=== PATIENT | female | born 1975 | race Caucasian/White ===

== ENCOUNTER 2019-06-29 05:55 | Emergency (ER) | payer OTHER ==
[~2019-06-29 05:55] MED LIST: BP MED; BUSP30TA2 PO; CARI350T PO; FERR1TAB45 PO; LEVO200 PO; MORP30TA71 PO; OXYC-43 PO; PARO40TA PO; TEMA30CA PO
== END 2019-06-29 06:30 | disposition left against medical advice (07) ==
LOC: EMS 05:56
DX: K46.9 Unspecified abdominal hernia without obstruction or gangrene (principal); Z53.21 Procedure and treatment not carried out due to patient leaving prior to being seen by health care provider

== ENCOUNTER 2019-11-29 16:41 | Inpatient (IN) | payer OTHER ==
[~2019-11-29] VITALS: Ht 174 cm; Wt 96.7 kg
[2019-11-29] VITALS (7 sets, daily range): BP systolic 13–130; BP diastolic 59–75
[~2019-11-29 16:41] MED LIST changes: -BP MED; -BUSP30TA2 PO; -CARI350T PO; +DOCU-275 PO; +FERR-89 PO; -MORP30TA71 PO; -OXYC-43 PO; -PARO40TA PO
[2019-11-29] MEDS ORDERED: METF-960 PO (16:53)
[2019-11-29] MEDS ORDERED: OMEP20 PO (16:53)
[2019-11-29] MEDS ORDERED: CHOL400T56 PO (16:53)
[2019-11-29 17:02] LABS: GLUCOSE,POINT OF CARE 135 MG/DL (70-110)
[2019-11-29 17:39] LABS: BASOPHILS % (AUTO) 0.7 % (0.0-2.0); HEMATOCRIT 21.5 % (36-46); LYMPHOCYTES # (AUTO) 1.4 K/uL (1.0-4.8); LYMPHOCYTES % (AUTO) 14.5 % (22.0-44.0); MEAN CORPUSCULAR HEMOGLOBIN 24.4 pg (26.0-34.0); MEAN CORPUSCULAR HGB CONC 31.7 G/dL (31.0-37.0); MEAN CORPUSCULAR VOLUME 77 fL (80-100); MONOCYTES # (AUTO) 0.5 K/uL (0.1-1.0); MONOCYTES % (AUTO) 5.4 % (2.0-9.0); NEUTROPHILS # (AUTO) 7.4 K/uL (1.8-7.7); NEUTROPHILS % (AUTO) 77.4 % (40.0-70.0); PLATELET COUNT (AUTO) 174 K/uL (150-450); RED BLOOD CELL COUNT(AUTO) 2.79 MIL/uL (4.00-5.20); RED CELL DISTRIBUTION WIDTH 24.1 % (11.5-14.5)
[2019-11-29 17:41] LABS: ANION GAP 4 mmol/L (8-16); CALCIUM, TOTAL 8.7 mg/dL (8.8-10.5); CARBON DIOXIDE 32 mmol/L (22-29); CHLORIDE 101 mmol/L (98-107); CREATININE 1.33 mg/dL (0.60-1.30); GLOMERULAR FILTR. RATE CALC 43 mL/min (>60); GLUCOSE,RANDOM 124 mg/dL (70-110); HEMOGLOBIN 6.8 g/dL (12.0-16.0); POTASSIUM 3.2 mmol/L (3.5-5.1); SODIUM SERUM 137 mmol/L (136-145); UREA NITROGEN, BLOOD 17 mg/dL (7-18)
[2019-11-29 17:53] LABS: ALANINE AMINOTRANSFERASE 23 U/L (12-78); ALBUMIN 3.9 g/dL (3.4-5.0); ALKALINE PHOSPHATASE 34 U/L (46-116); ASPARTATE AMINOTRANSFERASE 35 U/L (15-37); BILIRUBIN,TOTAL 0.2 mg/dL (0.1-1.0); HCG,QUANTITATIVE < 1 mIU/mL (0-6); TOTAL PROTEIN, SERUM 6.9 g/dL (6.4-8.2)
[2019-11-29 18:11] LABS: PLATELET MORPHOLOGY COMMENT LARGE PLTS PRESENT
[2019-11-29] MEDS ORDERED: ACETAMINOPHEN 500 MG TABLET PO ONE (18:30)
[2019-11-29] MEDS ORDERED: ACETAMINOPHEN 325 MG TABLET PO PRN (18:30)
[2019-11-29] MEDS ORDERED: DiphenhydrAMINE HCL 25 MG CAPSULE PO ONE (18:30)
[2019-11-29] MEDS ORDERED: 0.9% SODIUM CHLORIDE 10 ML SYRINGE IVP PRN (18:30)
[2019-11-29] MEDS ORDERED: ONDANSETRON HCL 4 MG/2 ML VIAL IVP PRN ×2 (18:30→23:15)
[2019-11-29] MEDS ORDERED: CHOL125C2 PO (18:31)
[2019-11-29] MEDS ORDERED: LEVO125 PO (18:31)
[2019-11-29] MEDS ORDERED: PREN1TAB26 PO (18:31)
[2019-11-29 19:17] LABS: % IRON SATURATION 4.2 % (22-44)
[2019-11-29] MEDS ORDERED: CLON2 PO (21:14)
[2019-11-29] MEDS ORDERED: ClonazePAM 1 MG TABLET PO PRN (21:45)
[2019-11-29] MEDS ORDERED: MAGNESIUM HYDROXIDE SUSPENSION 30 ML UDCUP PO PRN (23:15)
[2019-11-29] MEDS ORDERED: BISACODYL 10 MG RECTAL RECTAL SUPPOSITORY PR PRN (23:15)
[2019-11-29] MEDS ORDERED: ZOLPIDEM TARTRATE 5 MG TABLET PO PRN (23:15)
[2019-11-30] VITALS (13 sets, daily range): BP systolic 106–150; BP diastolic 53–87
[2019-11-30 06:43] LABS: ALBUMIN 3.5 g/dL (3.4-5.0); BILIRUBIN,TOTAL 0.3 mg/dL (0.1-1.0); CALCIUM, TOTAL 8.1 mg/dL (8.8-10.5); CREATININE 1.05 mg/dL (0.60-1.30); POTASSIUM 3.3 mmol/L (3.5-5.1); TOTAL PROTEIN, SERUM 6.5 g/dL (6.4-8.2)
[2019-11-30] MEDS ORDERED: DEXTROSE 50%-WATER 25 GM/50 ML SYRINGE IVP PRN (07:15)
[2019-11-30 07:17] LABS: BASOPHILS % (AUTO) 1.1 % (0.0-2.0); EOSINOPHILS % (AUTO) 3.2 % (1.0-6.0); HEMATOCRIT 25.5 % (36-46); HEMOGLOBIN 8.3 g/dL (12.0-16.0); LYMPHOCYTES # (AUTO) 1.8 K/uL (1.0-4.8); LYMPHOCYTES % (AUTO) 29.8 % (22.0-44.0); MEAN CORPUSCULAR HGB CONC 32.5 G/dL (31.0-37.0); MEAN CORPUSCULAR VOLUME 80 fL (80-100); MONOCYTES # (AUTO) 0.4 K/uL (0.1-1.0); NEUTROPHILS # (AUTO) 3.5 K/uL (1.8-7.7); NEUTROPHILS % (AUTO) 59.9 % (40.0-70.0); PLATELET COUNT (AUTO) 146 K/uL (150-450); RED CELL DISTRIBUTION WIDTH 23.5 % (11.5-14.5)
[2019-11-30] MEDS: INSULIN LISPRO 100 UNITS/ML SQ PRN (07:19)
[2019-11-30] MEDS ORDERED: FERROUS SULFATE 325 MG EC TABLET PO SCH (08:00)
[2019-11-30] MEDS: ClonazePAM 1 MG TABLET PO PRN ×2 (08:28→20:06)
[2019-11-30] MEDS: CHOLECALCIFEROL (VIT D3) 5,000 [125 MCG] UNITS CAPSULE PO SCH (08:28)
[2019-11-30] MEDS: MULTIVITAMINS WITH IRON TABLET PO SCH (08:28)
[2019-11-30] MEDS ORDERED: OMEPRAZOLE 20 MG CAPSULE PO SCH (09:00)
[2019-11-30] MEDS ORDERED: CHOLECALCIFEROL (VIT D3) 5,000 [125 MCG] UNITS CAPSULE PO SCH (09:00)
[2019-11-30] MEDS: NICOTINE 21 MG/24 HOUR PATCH TD SCH (11:12)
[2019-11-30] MEDS ORDERED: SODIUM CHLORIDE 0.9% 500 ML IV ONE (11:18)
[2019-11-30 11:22] LABS: GLUCOMETER DEV NAME(LOC) 6N.2; GLUCOSE,POINT OF CARE 154 MG/DL (70-110)
[2019-11-30 12:19] LABS: GLUCOMETER DEV NAME(LOC) 6S.1; GLUCOSE,POINT OF CARE 97 MG/DL (70-110)
[2019-11-30 12:59] LABS: % IRON SATURATION 5.7 % (22-44)
[2019-11-30 16:25] LABS: HEMATOCRIT 26.3 % (36-46); HEMOGLOBIN 8.8 g/dL (12.0-16.0)
[2019-11-30] MEDS: FERROUS SULFATE 325 MG EC TABLET PO SCH (17:12)
[2019-11-30 17:45] LABS: GLUCOMETER DEV NAME(LOC) 6S.1; GLUCOSE,POINT OF CARE 117 MG/DL (70-110)
[2019-12-01 00:33] VITALS: BP 110/68
[2019-12-01 04:43] VITALS: BP 121/85
[2019-12-01 05:31] LABS: EOSINOPHILS % (AUTO) 3.5 % (1.0-6.0); HEMATOCRIT 26.4 % (36-46); HEMOGLOBIN 8.9 g/dL (12.0-16.0); LYMPHOCYTES # (AUTO) 1.5 K/uL (1.0-4.8); LYMPHOCYTES % (AUTO) 26.5 % (22.0-44.0); MEAN CORPUSCULAR HEMOGLOBIN 27.5 pg (26.0-34.0); MEAN CORPUSCULAR HGB CONC 33.9 G/dL (31.0-37.0); MEAN CORPUSCULAR VOLUME 81 fL (80-100); MONOCYTES # (AUTO) 0.3 K/uL (0.1-1.0); MONOCYTES % (AUTO) 5.8 % (2.0-9.0); NEUTROPHILS # (AUTO) 3.5 K/uL (1.8-7.7); NEUTROPHILS % (AUTO) 63.2 % (40.0-70.0); PLATELET COUNT (AUTO) 167 K/uL (150-450); RED BLOOD CELL COUNT(AUTO) 3.25 MIL/uL (4.00-5.20); RED CELL DISTRIBUTION WIDTH 21.3 % (11.5-14.5)
[2019-12-01 06:08] LABS: ALBUMIN 3.3 g/dL (3.4-5.0); BILIRUBIN,TOTAL 0.2 mg/dL (0.1-1.0); CALCIUM, TOTAL 8.1 mg/dL (8.8-10.5); CREATININE 1.04 mg/dL (0.60-1.30); POTASSIUM 3.4 mmol/L (3.5-5.1); TOTAL PROTEIN, SERUM 6.1 g/dL (6.4-8.2)
[2019-12-01 07:13] LABS: GLUCOMETER DEV NAME(LOC) 6N.2; GLUCOSE,POINT OF CARE 93 MG/DL (70-110)
[2019-12-01 08:07] VITALS: BP 134/85
[2019-12-01] MEDS: CHOLECALCIFEROL (VIT D3) 5,000 [125 MCG] UNITS CAPSULE PO SCH (08:50)
[2019-12-01] MEDS: FERROUS SULFATE 325 MG EC TABLET PO SCH ×2 (08:50→11:49)
[2019-12-01] MEDS: NICOTINE 21 MG/24 HOUR PATCH TD SCH (08:50)
[2019-12-01] MEDS: MULTIVITAMINS WITH IRON TABLET PO SCH (08:50)
[2019-12-01] MEDS: ClonazePAM 1 MG TABLET PO PRN (08:52)
[2019-12-01 08:57] LABS: GLUCOMETER DEV NAME(LOC) 6S.1; GLUCOSE,POINT OF CARE 81 MG/DL (70-110)
[2019-12-01] MEDS ORDERED: PANTOPRAZOLE SODIUM 40 MG DR TABLET PO SCH (09:00)
[2019-12-01 11:33] VITALS: BP 121/80
[2019-12-01] MEDS: INSULIN LISPRO 100 UNITS/ML SQ PRN (11:35)
[2019-12-01 11:53] LABS: HEMATOCRIT 26.1 % (36-46); HEMOGLOBIN 8.7 g/dL (12.0-16.0)
[2019-12-01] MEDS ORDERED: MULT-700 PO (13:32)
[2019-12-01 20:59] LABS: GLUCOMETER DEV NAME(LOC) 6N.2; GLUCOSE,POINT OF CARE 121 MG/DL (70-110)
== END 2019-12-01 14:00 | disposition home or self-care (01) | DRG 663 ==
LOC: EMS 16:42 → 6N 18:25
PROVIDERS: ADMIT Hospitalist; ATTEND Hospitalist
PROC: 30233N1 Transfusion of Nonautologous Red Blood Cells into Peripheral Vein, Percutaneous Approach (ICD-10-PCS; principal; 2019-11-29)
DX: D62 Acute posthemorrhagic anemia (principal); N92.0 Excessive and frequent menstruation with regular cycle; N17.9 Acute kidney failure, unspecified; E87.6 Hypokalemia; E03.9 Hypothyroidism, unspecified; D50.9 Iron deficiency anemia, unspecified; K21.9 Gastro-esophageal reflux disease without esophagitis; E11.9 Type 2 diabetes mellitus without complications; F17.210 Nicotine dependence, cigarettes, uncomplicated; E86.0 Dehydration; R53.1 Weakness; Z87.11 Personal history of peptic ulcer disease; Z88.5 Allergy status to narcotic agent; Z88.6 Allergy status to analgesic agent; Z88.8 Allergy status to other drugs, medicaments and biological substances; Z79.899 Other long term (current) drug therapy; Z79.52 Long term (current) use of systemic steroids
CPT/HCPCS: 36430; 82728; 83540; 83550; 85014; 85018; 86850; 86870; 86900; 86901; 86902; 86905; 86922; G0378; J7040; P9016

== ENCOUNTER 2020-07-04 13:41 | Emergency (ER) | payer OTHER ==
[~2020-07-04] VITALS: Ht 172.7 cm; Wt 88.6 kg
[~2020-07-04 13:41] MED LIST changes: +CHOL500013 PO; +CLON-598 PO; -DOCU-275 PO; -FERR1TAB45 PO; +LEVO125 PO; -LEVO200 PO; +METF-960 PO; +MULT-700 PO; +OMEP20 PO; +PREN1TAB26 PO; -TEMA30CA PO
[2020-07-04] MEDS ORDERED: LIDO700A15 TP (13:49)
[2020-07-04] MEDS ORDERED: ACET-3385 PO (13:49)
[2020-07-04 14:02] LABS: GLUCOSE,POINT OF CARE 110 MG/DL (70-110)
[2020-07-04 15:00] VITALS: BP 152/96
== END 2020-07-04 15:17 | disposition home or self-care (01) ==
LOC: EMS 13:41
DX: S39.012A Strain of muscle, fascia and tendon of lower back, initial encounter (principal); S29.012A Strain of muscle and tendon of back wall of thorax, initial encounter; D64.9 Anemia, unspecified; F17.210 Nicotine dependence, cigarettes, uncomplicated; F12.90 Cannabis use, unspecified, uncomplicated; E11.9 Type 2 diabetes mellitus without complications; K21.9 Gastro-esophageal reflux disease without esophagitis; Z79.84 Long term (current) use of oral hypoglycemic drugs; Z88.5 Allergy status to narcotic agent; Z88.8 Allergy status to other drugs, medicaments and biological substances; X58.XXXA Exposure to other specified factors, initial encounter; Y93.89 Activity, other specified; Y92.89 Other specified places as the place of occurrence of the external cause; Y99.8 Other external cause status
CPT/HCPCS: 99283

== ENCOUNTER 2020-09-15 03:28 | Emergency (ER) | payer OTHER ==
[~2020-09-15] VITALS: Ht 172.7 cm; Wt 93.2 kg
[~2020-09-15 03:28] MED LIST changes: +ACET-3385 PO; +LIDO700A15 TP
[2020-09-15] MEDS ORDERED: KETOROLAC TROMETHAMINE 30 MG/ML VIAL IM ONE (04:15)
[2020-09-15 05:30] VITALS: BP 157/100
[2020-09-15] MEDS ORDERED: LIDOCAINE 5% TRANSDERMAL PATCH TD ONE (05:30)
== END 2020-09-15 06:06 | disposition left against medical advice (07) ==
LOC: EMS 03:30
DX: M54.12 Radiculopathy, cervical region (principal); R00.0 Tachycardia, unspecified; E11.9 Type 2 diabetes mellitus without complications; K21.9 Gastro-esophageal reflux disease without esophagitis; F17.210 Nicotine dependence, cigarettes, uncomplicated; F12.90 Cannabis use, unspecified, uncomplicated; Z88.5 Allergy status to narcotic agent; Z79.84 Long term (current) use of oral hypoglycemic drugs
CPT/HCPCS: 82962; 96372; 99283; J1885

== ENCOUNTER 2021-11-02 19:24 | Emergency (ER) | payer OTHER ==
[~2021-11-02] VITALS: Ht 172.7 cm; Wt 90.0 kg
[~2021-11-02 19:24] MED LIST changes: -FERR-89 PO; +FERR325T27 PO; +METF-1211 PO; -METF-960 PO
[2021-11-02 19:26] VITALS: BP 184/104
[2021-11-02 19:46] LABS: GLUCOMETER DEV NAME(LOC) ERT.5; GLUCOSE,POINT OF CARE 192 MG/DL (70-110)
== END 2021-11-02 20:32 | disposition left against medical advice (07) ==
LOC: EMS 19:29
DX: R42 Dizziness and giddiness (principal); Z53.21 Procedure and treatment not carried out due to patient leaving prior to being seen by health care provider
CPT/HCPCS: 82962

== ENCOUNTER 2022-02-03 10:21 | Emergency (ER) | payer OTHER ==
[~2022-02-03] VITALS: Ht 172.7 cm; Wt 90.9 kg
[2022-02-03] MEDS ORDERED: NIFE30TA98 PO (10:25)
[2022-02-03] MEDS ORDERED: LISI1TAB53 PO (10:25)
[2022-02-03] MEDS ORDERED: SIMV-46 PO (10:25)
[2022-02-03] MEDS ORDERED: SODIUM CHLORIDE 0.9% 1,000 ML IV ONE (10:45)
[2022-02-03 10:58] LABS: BASOPHILS % (AUTO) 0.5 % (0.0-2.0); EOSINOPHILS % (AUTO) 4.5 % (1.0-6.0); HEMATOCRIT 34.9 % (36-46); HEMOGLOBIN 11.7 g/dL (12.0-16.0); LYMPHOCYTES # (AUTO) 1.6 K/uL (1.0-4.8); MEAN CORPUSCULAR HEMOGLOBIN 28.3 pg (26.0-34.0); MEAN CORPUSCULAR HGB CONC 33.5 G/dL (31.0-37.0); MEAN CORPUSCULAR VOLUME 84 fL (80-100); MONOCYTES # (AUTO) 0.8 K/uL (0.1-1.0); MONOCYTES % (AUTO) 11.9 % (2.0-9.0); NEUTROPHILS % (AUTO) 59.1 % (40.0-70.0); PLATELET COUNT (AUTO) 194 K/uL (150-450); RED BLOOD CELL COUNT(AUTO) 4.14 MIL/uL (4.00-5.20); RED CELL DISTRIBUTION WIDTH 16.2 % (11.5-14.5)
[2022-02-03 11:08] LABS: CREATININE 1.56 mg/dL (0.60-1.30); POTASSIUM 3.9 mmol/L (3.5-5.1)
[2022-02-03 12:12] VITALS: BP 101/69
== END 2022-02-03 12:33 | disposition home or self-care (01) ==
LOC: EMS 10:50
DX: R42 Dizziness and giddiness (principal); G62.9 Polyneuropathy, unspecified; E11.9 Type 2 diabetes mellitus without complications; I10 Essential (primary) hypertension; E03.9 Hypothyroidism, unspecified; K21.9 Gastro-esophageal reflux disease without esophagitis; F17.210 Nicotine dependence, cigarettes, uncomplicated; F12.90 Cannabis use, unspecified, uncomplicated; Z88.5 Allergy status to narcotic agent; Z98.890 Other specified postprocedural states
CPT/HCPCS: 99285; 96360; 70450; 80048; 85025; 36415; 82948; 93005; J7030

== ENCOUNTER 2022-10-08 14:59 | Emergency (ER) | payer OTHER ==
[~2022-10-08] VITALS: Ht 172.7 cm; Wt 97.7 kg
[~2022-10-08 14:59] MED LIST changes: -CLON-598 PO; -FERR325T27 PO; -LIDO700A15 TP; +LISI1TAB53 PO; +NIFE-78 PO; +SIMV-46 PO
[2022-10-08] MEDS ORDERED: ATOR20TA PO (15:12)
[2022-10-08 15:26] LABS: GLUCOMETER DEV NAME(LOC) ERT.5; GLUCOSE,POINT OF CARE 148 MG/DL (70-110)
[2022-10-08 17:39] LABS: EOSINOPHILS % (AUTO) 2.6 % (1.0-6.0); HEMATOCRIT 44.2 % (36-46); HEMOGLOBIN 14.9 g/dL (12.0-16.0); LYMPHOCYTES # (AUTO) 1.8 K/uL (1.0-4.8); LYMPHOCYTES % (AUTO) 19.1 % (22.0-44.0); MEAN CORPUSCULAR HEMOGLOBIN 31.2 pg (26.0-34.0); MEAN CORPUSCULAR HGB CONC 33.6 G/dL (31.0-37.0); MEAN CORPUSCULAR VOLUME 93 fL (80-100); MONOCYTES # (AUTO) 0.6 K/uL (0.1-1.0); MONOCYTES % (AUTO) 5.9 % (2.0-9.0); NEUTROPHILS # (AUTO) 6.6 K/uL (1.8-7.7); NEUTROPHILS % (AUTO) 71.4 % (40.0-70.0); PLATELET COUNT (AUTO) 192 K/uL (150-450); RED BLOOD CELL COUNT(AUTO) 4.77 MIL/uL (4.00-5.20); RED CELL DISTRIBUTION WIDTH 14.7 % (11.5-14.5)
[2022-10-08 17:56] LABS: HEMOGLOBIN A1C 5.8 % (3.8-5.6)
[2022-10-08 18:11] LABS: POTASSIUM 3.5 mmol/L (3.5-5.1)
[2022-10-08 18:12] LABS: % IRON SATURATION 18.2 % (22-44); ALBUMIN 4.3 g/dL (3.4-5.0); BILIRUBIN,TOTAL 0.4 mg/dL (0.1-1.0); CALCIUM, TOTAL 9.3 mg/dL (8.8-10.5); CREATININE 1.66 mg/dL (0.60-1.30); TOTAL PROTEIN, SERUM 7.7 g/dL (6.4-8.2)
[2022-10-08] MEDS ORDERED: HYDR-4072 PO (18:39)
[2022-10-08 19:02] VITALS: BP 152/93
== END 2022-10-08 19:08 | disposition home or self-care (01) ==
LOC: EMS 15:14
DX: M54.12 Radiculopathy, cervical region (principal); M79.601 Pain in right arm; M79.602 Pain in left arm; M54.9 Dorsalgia, unspecified; M54.2 Cervicalgia; E11.9 Type 2 diabetes mellitus without complications; I10 Essential (primary) hypertension; E03.9 Hypothyroidism, unspecified; F17.210 Nicotine dependence, cigarettes, uncomplicated; F12.90 Cannabis use, unspecified, uncomplicated; Z98.890 Other specified postprocedural states; Z88.5 Allergy status to narcotic agent; Z88.8 Allergy status to other drugs, medicaments and biological substances
CPT/HCPCS: 80053; 82962; 83036; 83540; 83550; 84703; 85025; 99283

== ENCOUNTER 2023-12-16 09:56 | Emergency (ER) | payer OTHER ==
[~2023-12-16] VITALS: Ht 172.7 cm; Wt 90.9 kg
[~2023-12-16 09:56] MED LIST changes: +ATOR20TA PO; +HYDR-4072 PO; -PREN1TAB26 PO; -SIMV-46 PO
[2023-12-16 10:05] VITALS: TEMP 97.9
[2023-12-16] MEDS ORDERED: LEVO50TA11 PO (10:05)
[2023-12-16] MEDS ORDERED: OMEP20CA12 PO (10:05)
[2023-12-16] MEDS ORDERED: FLUC150T61 PO (10:05)
[2023-12-16] MEDS ORDERED: PREN1TAB26 PO (10:05)
[2023-12-16] MEDS ORDERED: BECL10.62 IH (10:05)
[2023-12-16] MEDS ORDERED: ALBU90AE IH (10:05)
[2023-12-16] MEDS ORDERED: BACL20TA PO (10:05)
[2023-12-16] MEDS ORDERED: BACTDSB PO (10:05)
[2023-12-16] MEDS ORDERED: METR500 PO (10:05)
[2023-12-16] MEDS ORDERED: LEVO300T8 PO (10:05)
[2023-12-16 10:27] LABS: BASOPHILS % (AUTO) 0.6 % (0.0-2.0); EOSINOPHILS % (AUTO) 2.4 % (1.0-6.0); HEMATOCRIT 46.6 % (36-46); HEMOGLOBIN 15.5 g/dL (12.0-16.0); LYMPHOCYTES # (AUTO) 1.3 K/uL (1.0-4.8); LYMPHOCYTES % (AUTO) 11.8 % (22.0-44.0); MEAN CORPUSCULAR HEMOGLOBIN 32.4 pg (26.0-34.0); MEAN CORPUSCULAR HGB CONC 33.2 G/dL (31.0-37.0); MEAN CORPUSCULAR VOLUME 98 fL (80-100); MONOCYTES # (AUTO) 0.9 K/uL (0.1-1.0); MONOCYTES % (AUTO) 7.9 % (2.0-9.0); NEUTROPHILS # (AUTO) 8.6 K/uL (1.8-7.7); NEUTROPHILS % (AUTO) 77.3 % (40.0-70.0); PLATELET COUNT (AUTO) 247 K/uL (150-450); RED BLOOD CELL COUNT(AUTO) 4.77 MIL/uL (4.00-5.20); RED CELL DISTRIBUTION WIDTH 14.2 % (11.5-14.5); WHITE BLOOD COUNT (AUTO) 11.1 K/uL (4.5-11.0)
[2023-12-16 10:37] LABS: CALCIUM, TOTAL 8.9 mg/dL (8.8-10.5); CREATININE 1.75 mg/dL (0.60-1.30)
[2023-12-16 10:44] LABS: ALBUMIN 3.6 g/dL (3.4-5.0); BILIRUBIN,DIRECT 0.1 mg/dL (0.00-0.20); BILIRUBIN,TOTAL 0.6 mg/dL (0.1-1.0); TOTAL PROTEIN, SERUM 7.4 g/dL (6.4-8.2)
[2023-12-16] MEDS: POTASSIUM CHLORIDE 20 MEQ ER TABLET PO ONE (11:14)
[2023-12-16] MEDS ORDERED: VANC125C12 PO (11:33)
[2023-12-16 12:40] VITALS: BP 103/65; PULSE 91; RESP 18
[2023-12-16] MEDS: VANCOMYCIN HCL 125 MG/2.5 ML SOLUTION ORAL.SYG PO ONE (12:44)
== END 2023-12-16 12:54 | disposition home or self-care (01) ==
LOC: EMS 09:58
DX: R19.7 Diarrhea, unspecified (principal); E11.9 Type 2 diabetes mellitus without complications; I10 Essential (primary) hypertension; E03.9 Hypothyroidism, unspecified; F17.210 Nicotine dependence, cigarettes, uncomplicated; F12.90 Cannabis use, unspecified, uncomplicated; Z98.890 Other specified postprocedural states; Z88.5 Allergy status to narcotic agent; Z88.8 Allergy status to other drugs, medicaments and biological substances
CPT/HCPCS: 80048; 80076; 83690; 84703; 85025; 99283